=== PATIENT | male | born 1970 | race African-American/Black ===

== ENCOUNTER 2024-02-05 19:08 | Inpatient (IN) | payer MEDICAID ==
[~2024-02-05] VITALS: Ht 170.2 cm; Wt 121.6 kg
[2024-02-05 12:49] VITALS: BP 124/90; PULSE 85; RESP 18; TEMP 98; O2SAT 95
[~2024-02-05 19:08] MED LIST: ALBU108A5 INH; ATOR40TA52 PO; AUG875T PO; FURO40TA4 PO; IPRAAER6; METH4PAK PO; METO-289 PO; MONT-8 PO
[2024-02-05] MEDS: ALBUTEROL SULF 2.5 MG/0.5ML(0.5%) NEB SOLN NEB ONE (20:05)
[2024-02-05] MEDS: IPRATROPIUM BROM 0.5 MG/2.5ML INH SOL NEB ONE (20:05)
[2024-02-05 20:18] LABS: Basophils # (auto) 0.1 10 ^3/uL (0-0.2); Basophils % (auto) 1.1 % (0.0-2.0); Eosinophils # (auto) 0.1 10 ^3/uL (0-0.8); Eosinophils % (auto) 1.5 % (0.0-7.0); Hematocrit 45.8 % (41.0-53.0); Hemoglobin 15.3 g/dL (13.5-17.5); Lymphocytes # (auto) 2.9 10 ^3/uL (0.4-5.4); Lymphocytes % (auto) 34.7 % (10.0-50.0); Mean Corpuscular Hemoglobin 32.8 pg (28.0-32.0); Mean Corpuscular Hgb Conc. 33.4 g/dL (32.0-36.0); Mean Corpuscular Volume 98.3 fL (80.0-100.0); Monocytes % (auto) 12.1 % (0.0-12.0); Neutrophils # (auto) 4.3 10 ^3/uL (1.6-8.6); Neutrophils % (auto) 50.6 % (37.0-80.0); Nucleated Red Blood Cells % 0.2 %; Platelet Count (auto) 230 10^3/uL (140-450); Red Blood Cells 4.66 10^6/uL (4.5-5.90); White Blood Cell 8.4 10^3/uL (4.4-10.8)
[2024-02-05 20:38] LABS: Alanine Aminotransferase 56 U/L (7-40); Albumin 4.1 g/dL (3.2-4.8); Alkaline Phosphatase 77 U/L (46-116); Anion Gap 1 (5-15); Aspartate Aminotransferase 35 U/L (13-40); BUN/Creatinine Ratio 7.3 (10.0-20.0); Bilirubin, Total 0.9 mg/dL (0.2-1.0); Blood Urea Nitrogen 9 mg/dL (9-23); Calcium 10.2 mg/dL (8.7-10.4); Carbon Dioxide 33 mmol/L (20-30); Chloride 108 mmol/L (98-107); Glucose 87 mg/dL (74-106); Potassium 4.1 mmol/L (3.5-5.1); Sodium 142 mmol/L (136-145)
[2024-02-05 20:39] LABS: Total Protein 6.5 g/dL (5.7-8.2)
[2024-02-05 21:35] VITALS: PULSE 89; O2SAT 95
[2024-02-05] MEDS: methylPREDNISolone SOD SUCC 125 MG/2 ML VL IV ONE (22:06)
[2024-02-05] MEDS: FUROSEMIDE 40 MG/4 ML VIAL IV ONE (22:07)
[2024-02-05] MEDS ORDERED: ACETAMINOPHEN 325 MG TAB PO PRN (22:15)
[2024-02-05] MEDS ORDERED: MORPHINE SULFATE INJ 2 MG/ml SYRG IV PRN (22:15)
[2024-02-05] MEDS ORDERED: NITROGLYCERIN 0.4 MG SL TAB SL PRN (22:15)
[2024-02-05 22:29] VITALS: BP 113/62; PULSE 90; RESP 20; O2SAT 99
[2024-02-05 23:29] VITALS: PULSE 85; RESP 20; O2SAT 95
[2024-02-05] MEDS: IPRATROPIUM BROM 0.5 MG/2.5ML INH SOL NEB SCH (23:29)
[2024-02-06] VITALS (19 sets, daily range): BP systolic 104–144; BP diastolic 67–90; PULSE 78–97; RESP 16–20; TEMP 97.3–98; O2SAT 90–100
[2024-02-06] MEDS: HYDROcodone-ACET 5/325MG TAB PO PRN (03:01)
[2024-02-06] MEDS: FUROSEMIDE 40 MG/4 ML VIAL IV SCH (05:56)
[2024-02-06 05:59] LABS: Chloride 107 mmol/L (98-107); Potassium 4.8 mmol/L (3.5-5.1); Sodium 140 mmol/L (136-145)
[2024-02-06 06:00] LABS: Anion Gap 4 (5-15); Carbon Dioxide 29 mmol/L (20-30)
[2024-02-06 06:05] LABS: BUN/Creatinine Ratio 5.4 (10.0-20.0); Blood Urea Nitrogen 7 mg/dL (9-23); Glucose 126 mg/dL (74-106)
[2024-02-06 07:44] LABS: Urine Bacteria None Seen /hpf (None Seen)
[2024-02-06 07:49] LABS: Urine Blood Negative /uL (Negative); Urine Clarity Clear (Clear); Urine Color Colorless (Yellow); Urine Protein, UAD Negative (Negative); Urine Specific Gravity 1.007 (1.001-1.035); Urine Urobilinogen Normal (Negative); Urine WBC 1 /hpf (0 - 3)
[2024-02-06 08:05] LABS: Amphetamine Screen, Urine Neg (NEGATIVE); Barbiturate Scree,Urine Neg (NEGATIVE); Benzodiazephine Screen, Urine Neg (NEGATIVE); Cocaine Screen, Urine Neg (NEGATIVE); Opiate Scree,Urine Neg (NEGATIVE); Phencyclidine Screen, Urine Neg (NEGATIVE)
[2024-02-06 08:06] LABS: Cannabinoid Screen, Urine Neg (NEGATIVE)
[2024-02-06] MEDS: FAMOTIDINE 20 MG TAB PO SCH (09:44)
[2024-02-06] MEDS: ENOXAPARIN SOD 40 MG/0.4 ML SYRINGE SC SCH (09:45)
[2024-02-07] VITALS (13 sets, daily range): BP systolic 104–120; BP diastolic 56–72; PULSE 80–96; RESP 14–20; TEMP 97.4–98.1; O2SAT 94–100
[2024-02-07 05:49] LABS: Chloride 107 mmol/L (98-107); Potassium 3.7 mmol/L (3.5-5.1); Sodium 141 mmol/L (136-145)
[2024-02-07 05:50] LABS: Anion Gap 5 (5-15); Calcium 9.6 mg/dL (8.7-10.4); Carbon Dioxide 29 mmol/L (20-30)
[2024-02-07 05:55] LABS: BUN/Creatinine Ratio 12.7 (10.0-20.0); Blood Urea Nitrogen 15 mg/dL (9-23); Glucose 117 mg/dL (74-106)
[2024-02-07] MEDS ORDERED: PREG50CA80 PO (15:09)
[2024-02-07] MEDS ORDERED: SACU1TAB PO (15:09)
[2024-02-07] MEDS ORDERED: CYCL-611 PO (15:10)
== END 2024-02-07 16:45 | disposition home or self-care (01) | DRG 140 ==
LOC: ER 19:08 → TELE 22:13 → TELE-E-ADS 22:13
PROVIDERS: ADMIT Nurse Practitioner Family; ATTEND Nurse Practitioner Family
DX: J44.1 Chronic obstructive pulmonary disease with (acute) exacerbation (principal); J96.10 Chronic respiratory failure, unspecified whether with hypoxia or hypercapnia; I50.9 Heart failure, unspecified; I11.0 Hypertensive heart disease with heart failure; Z99.81 Dependence on supplemental oxygen; F17.210 Nicotine dependence, cigarettes, uncomplicated; Z79.899 Other long term (current) drug therapy; Z80.6 Family history of leukemia
CPT/HCPCS: 36415; 71045; 80048; 80053; 80307; 81001; 83880; 84484; 85025; 93005; 93970; 94640; 96374; 96375; G0378